=== PATIENT | male | born 1965 | race Caucasian/White ===

== ENCOUNTER 2019-01-31 05:50 | Day surgery (SDC) | payer OTHER ==
[~2019-01-31] VITALS: Ht 175.3 cm; Wt 77.1 kg
[~2019-01-31 05:50] MED LIST: AUGMENTIN 875-1 EACH PO; TRAMADOL HCL50 MG PO
--- NOTE | 2019-01-31 07:59 | NUR ---
01/31/19 0759 Debbie Roman 0754-PATIENT ARRIVED TO PACU ON 10L MASK NONAROUSABLE. ORAL AIRWAY IN PLACE LAYING LEFT LATERAL. ABDOMEN SOFT. RR EVEN. SR
--- NOTE | 2019-02-01 12:42 | OR ---
[facility] [address], [place] [address] Signed DATE OF OPERATION: 01/31/2019 SURGEON: Ria Soto MD PREOPERATIVE DIAGNOSES: 1. Rectal bleeding. 2. Hemorrhoids. 3. Meckel's diverticulitis, requiring resection. 4. Colonic diverticulosis. POSTOPERATIVE DIAGNOSES: 1. Minimal sigmoid diverticulosis. 2. Moderate internal and external hemorrhoids. 3. 5 mm polyp at 15 cm (rectum). PROCEDURE PERFORMED: Colonoscopy with hot biopsy. ESTIMATED BLOOD LOSS: None. INDICATIONS: Praveen is a 53-year-old gentleman who was asked to see me for his initial colonoscopy. He has intermittent rectal bleeding and he feels that is associated with his hemorrhoids. He also has a transverse supraumbilical incision associated with a Meckel's diverticulectomy. In addition, there is some concern that he has colonic diverticulosis. He told me there is no family history of colon cancer or polyps. He was asked to see me with respect to the above. I gave Praveen a pamphlet on colonoscopy. We looked at that together along with the risks including, but not limited to gas bloating, crampy abdominal pain, bleeding, perforation, requiring surgery, and missed diagnosis. We also discussed the need for IV conscious sedation. 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 He had expressed understanding and wished to proceed. PROCEDURE NOTE: Praveen was taken into our endoscopy suite and placed in the left lateral decubitus position. He was given IV sedation with propofol per our nurse colorist photography. Sure enough we could see the Cbvgj-Drdqtpatm-Pwvhy on the rhythm strip. A digital rectal exam was performed and his prostate was somewhat indurated. It is not enlarged, but the Electronically Signed By: RIA SOTO MD 02/01/19 0891 Electronically Signed By: RIA SOTO MD 02/02/19 0747 PATIENT NAME: PRAVEEN NUÑEZ OPERATIVE REPORT DATE OF : 61 REPORT #: [id number] PHYSICIAN: RIA SOTO MD PCP: SRINATH KAUFMAN REPORT IS CONFIDENTIAL AND NOT TO BE RELEASED WITHOUT AUTHORIZATION [facility] [address] [place], [place] [address] Signed left side certainly is more prominent than the right. He does have moderate external hemorrhoids. Good sphincter tone. After this the adult colonoscope was introduced and advanced all around into the cecum under direct visualization of camera without difficulty. His prep was good. The scope was slowly withdrawn. We took pictures throughout for photodocumentation. He does have a few diverticula in his sigmoid colon. They were small in size, few in number, and scattered about. At the top of the rectum at 15 cm was a small polyp, which we easily removed with a hot biopsy forceps. Upon retroflexion of scope, he does have some moderate internal hemorrhoids as well. After this, the gas was suctioned out and the colonoscope removed. Praveen tolerated the procedure quite well. RECOMMENDATIONS: I will see Praveen back in my office in 7 to 14 days to review his results. In addition, I wrote down Meckel's diverticulum and I gave that to Praveen, so he can look that up at home on the Internet. MD AGNES Lara/SCOTTL /[id number] cc: MD Tiffany Lara FNP Wade R Hunsaker, FNP Copies: RIA SOTO MD, MARY FNP HUNSAKER, WADE R FNP ~ Electronically Signed By: RIA SOTO MD 02/01/19 0824 Electronically Signed By: RIA SOTO MD 02/02/19 0747 PATIENT NAME: PRAVEEN NUÑEZ OPERATIVE REPORT DATE OF : 61 REPORT #: [id number] PHYSICIAN: RIA SOTO MD PCP: SRINATH KAUFMAN REPORT IS CONFIDENTIAL AND NOT TO BE RELEASED WITHOUT AUTHORIZATION
== END 2019-01-31 08:25 | disposition home or self-care (01) ==
LOC: OPS 05:50 → DS 05:50 → OPS 07:00 → DS 07:00 → OPS 08:25
PROVIDERS: Colon & Rectal Surgery
PROC: 0DBP8ZX Excision of Rectum, Via Natural or Artificial Opening Endoscopic, Diagnostic (ICD-10-PCS; principal; 2019-01-31 07:00)
DX: K62.1 Rectal polyp (principal); K64.8 Other hemorrhoids; K64.4 Residual hemorrhoidal skin tags; K57.30 Diverticulosis of large intestine without perforation or abscess without bleeding; E78.5 Hyperlipidemia, unspecified; I45.6 Pre-excitation syndrome; F17.210 Nicotine dependence, cigarettes, uncomplicated; I25.2 Old myocardial infarction; I25.10 Atherosclerotic heart disease of native coronary artery without angina pectoris; F12.90 Cannabis use, unspecified, uncomplicated; Z88.5 Allergy status to narcotic agent; Z88.6 Allergy status to analgesic agent; Z88.8 Allergy status to other drugs, medicaments and biological substances
CPT/HCPCS: J2704; J7120

== ENCOUNTER 2023-08-27 13:43 | Inpatient (IN) | payer BC, OTHER ==
[~2023-08-27] VITALS: Ht 175.3 cm; Wt 68.8 kg
[2023-08-27 15:42] LABS: BASOPHILS 0.2 % (0-2); HEMOGLOBIN 16.6 g/dL (12.0-18.0); LYMPHOCYTES 7.1 % (24-44); MCH 32.1 (27-36); MCHC 34.6 g/dl (30-36); MCV 92.8 fl (81-99); NEUTROPHILS 89.7 % (39-80); PLATELET COUNT 280 K/uL (140-440); RBC 5.17 M/ul (4.3-5.7); RDW 13.3 (10.5-15.0)
[2023-08-27 15:57] LABS: ALBUMIN 4.1 g/dL (3.4-5.0); ALBUMIN/GLOBULIN RATIO 1.24 (1.1-2.4); ANION GAP 16.8 (7-21); BILIRUBIN, TOTAL 0.9 ng/dL (0.2-1.0); BUN/CREATININE RATIO 14.7 (6.0-28.6); CREATININE, SERUM 1.02 mg/dL (0.70-1.30); POTASSIUM 3.8 mmol/L (3.5-5.1); PROTEIN, TOTAL 7.4 g/dL (6.4-8.2)
--- NOTE | 2023-08-27 19:53 | NUR ---
[facility] ORIENTED TO ROOM AND POC. ADMISSION COMPLETED BY PEER SUPPORT SPECIALIST KATELYN, THIS RN REMAINED IN ROOM TO ASSIST NEEDED. SEE NOTE FROM PRIMARY RN AUGUST FOR ADDITIONAL DETAILS. CALL LIGHT IN REACH.
[2023-08-27 19:55] VITALS: BP 154/87
--- NOTE | 2023-08-27 19:55 | NUR ---
PATIENT ARRIVED TO GA FROM ER VIA STRETCHER. SBA TO MS BED. QUICK ADMISSION AND VITAL SIGNS DONE. NEW ORDERS ACKNOWLEDGED. PRN PAIN MEDICATION ADMINISTERED, SEE DEC. IV ASSESSED AND FLUSHED WITH 10 MLS OF NS, WNL. IV ABX INFUSING PER ORDER, SEE MAR. SCHEDULED IV MEDICATIONS ADMINISTERED PER ORDER, SEE DEC. REPORTS Pt DESATTED IN THE ER INTO THE 80'S FOLLOWING PAIN MEDICATION. USING CLINICAL JUDGEMENT CPOX WAS PLACED ON pt FINGER TO MONITOR FOR LOW O2 SATURATION DUE TO FREQUENT USE OF IV PAIN MEDICATION. PATIENT STATED HE WAS INTERESTED IN INFORMATION ABOUT ADVANCE DIRECTIVES, PACKET AND EDUCATION PROVIDED TO pt AND FAMILY. CALL LIGHT WITHIN PLACE. NO OTHER NEEDS AT THIS TIME.
--- NOTE | 2023-08-27 21:47 | NUR ---
IV ABX INFUSING, SEE MAR. IV SITE ASSESSED, WNL. CALL LIGHT WITHIN REACH.
--- NOTE | 2023-08-27 22:47 | NUR ---
ASSESSMENT DONE. pt C/O OF 5/10 PAIN IN HIS ABDOMIN. PRN PAIN MEDICATIONS ADMINISTERED, SEE MAR. IV SITE ASSESSED, WNL. SCDs IN PLACE. IVF INFUSING PER ORDER. NG TUBE HOOKED UP TO LOW INTERMITTENT SUCTION PER ORDER. O2 SATURATIONS AT 94% ON RA. CALL LIGHT WITHIN REACH. NO OTHER NEEDS AT THIS TIME.
--- NOTE | 2023-08-27 23:57 | NUR ---
PATIENT RESTING IN BED WITH EYES CLOSED. HR 66. IN ROOM. RESP EVEN AND UNLABORED. CALL LIGHT WITHIN REACH. NO OTHER NEEDS AT THIS TIME.
[2023-08-28] VITALS (9 sets, daily range): BP systolic 101–147; BP diastolic 62–84
--- NOTE | 2023-08-28 02:12 | NUR ---
ASSESSMENT AND VITAL SIGNS DONE. NG SUCTION AT LOW INTERMIDIATE. PATIENT C/O 01/10 PAIN. PRN IV PAIN MEDICATION ADMINISTERED, SEE MAR. IV SITE ASSESSED, WNL. CALL LIGHT WITHIN REACH. NO OTHER NEEDS AT THIS TIME.
--- NOTE | 2023-08-28 03:55 | NUR ---
PATIENT RESTING IN BED WITH EYES CLOSED. RR EVEN AND UNLABORED. CALL LIGHT WITHIN REACH. NO OTHER NEEDS AT THIS TIME.
[2023-08-28 05:27] LABS: BASOPHILS 0.5 % (0-2); EOSINOPHILS 0.2 % (0-6); HEMATOCRIT 47.3 % (35.0-50.0); HEMOGLOBIN 16.1 g/dL (12.0-18.0); LYMPHOCYTES 11.4 % (24-44); MCH 32.1 (27-36); MCHC 34.1 g/dl (30-36); MCV 94.1 fl (81-99); MONOCYTES 5.5 % (0-12); NEUTROPHILS 82.4 % (39-80); PLATELET COUNT 266 K/uL (140-440); RBC 5.03 M/ul (4.3-5.7); RDW 13.6 (10.5-15.0)
--- NOTE | 2023-08-28 05:35 | NUR ---
AT 0500 pt CALLED FOR PAIN MEDICATION. pt C/O OF 7/10 PAIN. VITAL SIGNS DONE. PRN DILAUDID ADMINISTERED, SEE MAR. WHILE ADMINISTERING PAIN MEDICATION pt STATES HE IS NAUSIUOS WELL. PRN ZOFRAN ADMINITERED AT 0515. AT 0530 pt STATED HE IS STILL HAVING BREAK THROUGH PAIN. PRN DILAUDID TITRATED UP, SEE MAR. PATIENT DUE TO VOID. pt STOOD AT BED SIDE WITH URINAL TO PEE. pt WAS ABLE TO VOID 350 MLS. UA SENT. pt BACK IN BED. SCDs ON. PANTS AND UNDERWEAR REMOVED FOR SURGERY. IV ABX INFUSING PER ORDER, SEE MAR. pt RESTING IN BED WITH EYES CLOSED, NO LONGER C/O PAIN. CALL LIGHT WITHIN REACH. NG TUBE REMAINS TO LOW INTERMITTENT SUCTION, LINE PATENT AND OUTPUT BROWN IN CANISTER. IV SITE ASSESSED, WNL. NO OTHER NEEDS AT THIS TIME.
[2023-08-28 05:42] LABS: ANION GAP 13.7 (7-21); BUN/CREATININE RATIO 18.51 (6.0-28.6); CALCIUM 8.4 mg/dL (8.5-10.1); CREATININE, SERUM 0.81 mg/dL (0.70-1.30); MAGNESIUM 1.8 mg/dL (1.8-2.4); PHOSPHORUS, INORGANIC 3.6 mg/dL (2.5-4.9); POTASSIUM 3.7 mmol/L (3.5-5.1)
[2023-08-28 05:51] LABS: BILIRUBIN, URINE POSITIVE (negative); BLOOD/HGB, URINE NEGATIVE (Negative); KETONE, URINE SMALL (Negative); LEUK ESTERASE, URINE NEGATIVE (negative); NITRITE, URINE NEGATIVE (negative); PH, URINE 5.5 (5-7)
--- NOTE | 2023-08-28 05:56 | EKG ---
[facility] [address] [facility] [place], [place] [address] Signed Normal sinus rhythm Left axis deviation Inferior infarct (cited on or before 25-JAN-2019) Abnormal ECG When compared with ECG of 25-JAN-2019 08:43, Left anterior fascicular block is no longer present Confirmed by SERGO ALFORD MD ([id number]) on 08/28/2023 5:56:45 AM Electronically Signed By: SERGO ALFORD 08/28/23 0556 PATIENT NAME: NUÑEZPAOLA Electrocardiogram DATE OF : 61 PHYSICIAN: SERGO ALFORD REPORT #: [id number] REPORT IS CONFIDENTIAL AND NOT TO BE RELEASED WITHOUT AUTHORIZATION
--- NOTE | 2023-08-28 07:18 | CONS ---
[facility] [address] [place], [place] [address] Signed DATE OF CONSULTATION: CHIEF COMPLAINT: Lower quadrant abdominal pain. HISTORY OF PRESENT ILLNESS: Praveen is a 57-year-old gentleman originally from the [place], [place] area. He had perforated diverticulitis with an abscess back in 2002 at age 37. He was at [facility] and used a transverse incision to resect his colon. 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 He has done very well since then. In fact, he works at [employer] for the [employer]. He has moved out here after his grandmother to help his grandfather. His is with him. He has been doing fine until he developed this crampy abdominal pain in the left lower quadrant today. He came to emergency room for evaluation. In the emergency room, his vital signs were fine, but his white count up a little bit. CT scan showed his two fat containing ventral hernias and probably some swirling of the small bowel mesentery and he has some dilated loops of bowel in that left side of his abdomen. I have been asked to see him as a general surgeon on-call. PAST MEDICAL HISTORY: Diverticulitis, Iqwbd-Azifbgnql-Hfnqq syndrome. PAST SURGICAL HISTORY: Open sigmoidectomy through a transverse incision with perforation abscess in 2002 at the age of 37 at [facility] in [place], [place], also cardiac ablation while living in [place], [place], and then an open appendectomy. SOCIAL HISTORY: He likes to smoke a pack cigarettes a day. He does not drink. He likes to smoke a little marijuana before he goes to bed. He is to his , Yanet at #[phone]. They have three children. 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 He is awaiting to see if [facility] will take him as a patient. Otherwise, he has no primary care provider. He prefers the [facility]. FAMILY HISTORY: Mom had breast cancer. He does not know much about his dad. REVIEW OF SYSTEMS: He had 10 systems reviewed and he filled man on some of the details above. ALLERGIES: , midazolam causes agitation. Hydrocodone and oxycodone apparently decreases breathing, possibly anaphylaxis. Ibuprofen only works for one dose. He said morphine and Dilaudid seemed to work. Electronically Signed By: RIA SOTO MD 08/28/23 0718 PATIENT NAME: PRAVEEN NUÑEZ CONSULTATION DATE OF : 61 REPORT #: [id number] PHYSICIAN: RIA SOTO MD PCP: NO PRIMARY CARE PHYSICIAN REPORT IS CONFIDENTIAL AND NOT TO BE RELEASED WITHOUT AUTHORIZATION [facility] [address], [place] [address] Signed MEDICATIONS: None. PHYSICAL EXAMINATION: VITAL SIGNS: His blood pressure is 157/85, his heart rate is 51, his respiratory rate 14, temperature is 98.5. He is 98% on room air. He is 5 feet 9 inches tall, 72 kg with a body mass index of 23. GENERAL: Praveen is a 57-year-old gentleman, who appears older than his stated age. It is clear he has been a long-time smoker. He is in no acute distress. He does not appear systemically ill or toxic. LUNGS: Generally clear to auscultation bilaterally. HEART: Regular rate and rhythm without murmur. ABDOMEN: Generally soft and flat, but he is little tender in the left lower quadrant. I can feel a hernia in his supraumbilical transverse incision. LABORATORY DATA: His white blood count 15.1, his hemoglobin 16, neutrophils 89. His electrolytes are unremarkable. Liver function tests are negative. His albumin is 4.1. RADIOGRAPHIC STUDIES: CT scan of abdomen and pelvis shows two ventral hernias containing fat. He has a little swelling of the small bowel mesentery and it looks like he prior has a small bowel obstruction with some dilated loops of bowel on the left side of the abdomen. ASSESSMENT/PLAN: Praveen is a 57-year-old gentleman, who presents with a small-bowel obstruction. He now has his NG tube in place. I explained to Praveen and his . I think we will get him admitted and I hydrate and we will start his antibiotics and his Lovenox and check an EKG. We will plan on doing his surgery in the morning through a laparotomy. He understands the nature of the surgery. There is risk including, but not limited to bleeding, infection, scarring, change in contour of the skin, damage to bowel, anastomotic leak, incisional hernias and other unforeseen comorbidities. They have expressed understanding and wished to proceed as above. Ria Soto MD ALB/MODL /[id number] Electronically Signed By: RIA SOTO MD 08/28/23 0718 PATIENT NAME: PRAVEEN NUÑEZ CONSULTATION DATE OF : 61 REPORT #: [id number] PHYSICIAN: RIA SOTO MD PCP: NO PRIMARY CARE PHYSICIAN REPORT IS CONFIDENTIAL AND NOT TO BE RELEASED WITHOUT AUTHORIZATION [address] [place], [place] [address] Signed cc: Ria Soto MD Copies: RIA SOTO MD ~ Electronically Signed By: RIA SOTO MD 08/28/23 0718 PATIENT NAME: PRAVEEN NUÑEZ JOHN CONSULTATION DATE OF : 61 REPORT #: [id number] PHYSICIAN: RIA SOTO MD PCP: NO PRIMARY CARE PHYSICIAN REPORT IS CONFIDENTIAL AND NOT TO BE RELEASED WITHOUT AUTHORIZATION
--- NOTE | 2023-08-28 07:50 | NUR ---
PT RESTING IN BED AT TIME OF SHIFT REPORT. C/O CONTINUED ABDOMINAL PAIN MEDICATED WITH [address] ORDERS. [address] SOTO IN TO SEE PT AND DISCUSS PROCEEDURE, CONSENT SIGNED. IS PRESENT IN THE ROOM. PT DENIES OTHER NEEDS AT THIS TIME
--- NOTE | 2023-08-28 08:43 | NUR ---
PT WIPE DOWN COMPLETED ALL QUESTIONS ANSWERED. PT OFF TO O/R
--- NOTE | 2023-08-28 10:37 | NUR ---
PT IN SURGERY AT THE TIME OF VS ROUNDS.
--- NOTE | 2023-08-28 11:24 | NUR ---
PT BACK FROM O/R ALERT AND INTERACTIVE, IS PRESENT IN THE ROOM. PT DENIES PAIN OR NAUSEA, AGREES HE IS COMFORTABLE.
--- NOTE | 2023-08-28 11:36 | NUR ---
08/28/23 1135 Jessica Jaramillo 1037-PATIENT ARRIVES TO [facility] ON 6L VIA MASK. PATIENT IS NONAROUSABLE, OPA IN PLACE. CHIN LIFT BY THIS RN. NG TUBE CONNECTED TO SUCTION. 1045-PATIENT IS REACTIVE. OPA REMOVED. EYES OPEN. PATIENT COUGHING SUCTION USED TO REMOVE SECREATIONS. HOB ELEVATED. ICE PACK ON INCISION. PILLOW NEXT TO PATIENT TO USE WITH COUGHING. 1048-PATIENT IS DROWSY. RESP EVEN AND UNALBORED. O2 SAT AT 100% ON 6L VIA MASK. ENCOURAGED PATIENT TO TAKE DEEP BREATHS AND COUGH. 1055-PATIENT IS AWAKE AND TALKING. RESP EVEN AND UNLABORED. O2 SAT AT 100% ON 6L VIA MASK. 1057-PATIENT STATES "I FEEL GOOD" 1100-PATIENT IS AWAKE. RESP EVEN AND UNLABORED. O2 TITRATED OFF, SATS IN UPPER 90'S ON RA. NO NAUSEA. 1002-PATIENT STATES "I FEEL FINE" ENCOURAGED PATIENT TO TAKE DEEP BREATHS AND COUGH. 1107-PATIENT RATES PAIN 1 1/2 AND THIS IS TOLERABLE FOR HIM. NO NAUSEA. 1120-PATIENT TO ROOM 114. BED PLUGGED IN AND BED RAILS UP. BED LOWERED. PATEINT CONNECTED TO SUCTION FOR NG TUBE. RATES PAIN 1 1/2 OUT OF 10. REPORET GIVEN TO HAMIDA BLAKELY. NO OTHER NEEDS AT THIS TIME.
--- NOTE | 2023-08-28 11:43 | NUR ---
PT CONTINUES AWAKE RESTING COMFORTABLY WATCHING TV, AT BEDSIDE.
--- NOTE | 2023-08-28 12:45 | NUR ---
PT RESTING EYES CLOSED AWAKENS FOR VITALS RETURNS TO RESTING
--- NOTE | 2023-08-28 13:40 | NUR ---
PT AWAKE TO VOICE CONTINUES IN THE ROOM. PT AGREES HE IS COMFORTABLE, STATES HE WANTS THE NG TUBE OUT, IS READY FOR A MEAL, WANTS TO GO HOME. PT IN [employer]ING. DENIES NEEDS AT THIS TIME ICE CHIPS TO BEDSIDE FOR COMFORT. CLEAR LIQUID COMING THROUGH NG TUBE NO COLOR
--- NOTE | 2023-08-28 14:44 | NUR ---
PT CONTINUES TO FEEL "GREAT" NO C/O PAIN OR NAUSEA. SITTING UP IN BED WATCHING TV IS PRESENT
--- NOTE | 2023-08-28 15:27 | NUR ---
Pt up to ambulate the hallway x1 with this RN and pt's . Pt tolerated activity well with no c/o increased pain, no dizziness or lightheadedness. BP while standing was 136/89 prior to ambulating. Pt asked if he had to keep his cpox on, I advised him that I would check with his RN. Call light in reach.
--- NOTE | 2023-08-28 15:34 | NUR ---
PT AMBULATES THE BERMUDEZ SBA THEN RETURNS TO HIS ROOM. DENIES DIZZINESS OR DISCOMFORTS.
--- NOTE | 2023-08-28 20:15 | NUR ---
pt ambulated hallways up and down several times, tolerated well. currently back in room, laying in bed, room air, Lnare NGT in place to Wall suction. draining reddish colored thin drainage, NPO with ice chips for comofrt. coop with vitals and assessment. abd with hypoactive bowel tones, midline incirion with silk tape, old shadowing marked. no c/o pain. scds off at his requets. IVF infusing RFA, patent. Noted that pt was c/o NGT was too noise and disconnected it himself "It does not make as much noise on the blue tube" Pt stated. reconnected tubing to white port, still light air suctioning kind of noise heard. taped to prevent further dislocation or worng placement by pt. Pt instructed on noise, proper positioning for suction/air vent, etc. its just noisey " sttaed, but i dont want to get anybody in trouble". movees and repositions self in bed, uses urinal. at bedside. nurse notified
--- NOTE | 2023-08-28 20:59 | NUR ---
pt c/o h/a and excessive noise coming fron ngt. main tubing to NGT changed and stop cok applied. "better" stated, diminished air flow noise noted. Medicated with Tylenol via NGT. flushes easily, clamped at this time.
--- NOTE | 2023-08-29 00:39 | NUR ---
On room air, eyes closed, L nare NGT to LIWS, patent, draining reddish colored drainage. IVF infusing w/o problems. abd dressing with old drainage, scds off at his requests at this time.
--- NOTE | 2023-08-29 01:46 | NUR ---
PATIENT AND STATED THAT PT PASSES FLATUS.
[2023-08-29 01:48] VITALS: BP 134/70
--- NOTE | 2023-08-29 01:55 | NUR ---
continues to c/o h/a, medicated with DIlaudid 1mg IV. irritable mood, NGT nose pad replaced. Procedure explained, semicooperative. denies need to stand up and urinate. NPO, tolerating ice chips. IVF infusing. scds off his request.
[2023-08-29 06:01] VITALS: BP 129/83
--- NOTE | 2023-08-29 06:27 | NUR ---
Up to edge of bed, voided QS light ave colored urine. c/o h/a, declined Tylenol, medicated with Dilaudi 1mg. NGT patent to RODOLFO, draining reddish colored drainage. IVF infusing , no c/o adverse reaction to abx. midline incision dressing with old drainage, KIRK, pt stated he is passing flatus. scds off. Ambulated hallways earlier on shift. NPO, IS instructions given and used. Temp 99
--- NOTE | 2023-08-29 06:28 | OR ---
[facility] [address] [place], [place] [address] Signed DATE OF OPERATION: 08/28/2023 SURGEON: Ria Soto MD PREOPERATIVE DIAGNOSES: 1. Small bowel obstruction x2. 2. Supraumbilical ventral incisional hernia (3 cm). POSTOPERATIVE DIAGNOSES: 1. Small bowel obstruction x2. 2. Supraumbilical ventral incisional hernia (3 cm). 3. History of Meckel's diverticulectomy. PROCEDURES: 1. Laparotomy. 2. Moderate lysis of adhesions. 3. Primary repair of ventral hernia (3 cm). ESTIMATED BLOOD LOSS: Less than 10 mL. INDICATIONS: Praveen is a 57-year-old gentleman originally from [place], [place]. He had a family member so he came out to support the rest of his family here in [place], [place]. He now works at the local [employer] in the [employer] department. He came into the emergency room with left lower quadrant abdominal pain. It was crampy and came on in waves. He was tender in that area. Vital signs were fine. White count was up a little. CT scan of abdomen and pelvis showed two ventral hernias containing fat and some swirling in the small bowel mesentery and small bowel obstruction, probably x2. I met with Praveen and his in the emergency room. We placed an NG tube and admitted him overnight for hydration and antibiotics. This morning, he said he was still using some Dilaudid for the pain. When I went back and checked my records, I helped him with a colonoscopy in 2019. He has actually had a Meckel's diverticulectomy. For some reason, he said there was an abscess associated with that. That would explain some of the adhesions. I explained to Praveen that we have to take him to surgery to lyse the adhesions and relieve him of his bowel obstruction. There is always a risk, we have to do a small bowel resection as well. He understands the expected intraop and postop course. There is risk including, but not limited to bleeding, infection, scarring, change in contour of the skin, damage to bowel, anastomotic leak, recurrent incisional hernias and recurrent adhesions with bowel obstruction and any other unforeseen Electronically Signed By: RIA SOTO MD 08/29/23 0628 PATIENT NAME: PRAVEEN NUÑEZ OPERATIVE REPORT DATE OF : 61 REPORT #: [id number] PHYSICIAN: RIA SOTO MD PCP: NO PRIMARY CARE PHYSICIAN REPORT IS CONFIDENTIAL AND NOT TO BE RELEASED WITHOUT AUTHORIZATION [facility] [address] [place], [place] [address] Signed comorbidities. He had expressed understanding and wished to proceed. DESCRIPTION OF PROCEDURE: Praveen was taken into the operating room and placed in the supine position under general endotracheal tube anesthesia. He was given preoperative antibiotics. He was on subcutaneous Lovenox. SCDs were in place. Sotelo catheter was inserted with return of ave colored clear urine. He had been prepped and draped in the usual sterile fashion. A standard periumbilical vertical incision was made and carried to the abdomen without difficulty with the help of the cautery. He had a 3 cm ventral hernia just off to the edge of the midline above the umbilicus from his previous transverse incision. We reduced all the omentum from that hernia and back in the abdomen. We did take down some adhesions between the omentum in the falciform ligament as well as the transverse colon and small bowel. He had dilated hyperemic bowel in that left quadrant. We took down the adhesive bands and bowel began to pink up very nicely. The distal bowel was completely decompressed. We took down we ran the bowel from the ligament of Treitz all the way down the ileocecal valve. We found the area of his Meckel's diverticulectomy. It looks like they suture in transversely. We took down all adhesions as well as a few adhesions from the small bowel down to the sigmoid colon. The abdomen was irrigated and suctioned out until clear. The bowel was returned to its position and covered over by the omentum. We closed the fascia with interrupted #1 PDS [id number] sutures. We injected local anesthetic into the abdominal wall. The wound was irrigated and suctioned out until clear. We brought the dermis back together with interrupted 3-0 subcuticular Monocryl sutures. The skin edges were reapproximated with regina. Our anesthesia provider provided bilateral TAP blocks. After this, Praveen was awakened from his anesthesia, extubated in the OR and taken to the recovery room in stable condition. Ria Soto MD ALB/MODL /[id number] cc: Ria Soto MD Electronically Signed By: RIA SOTO MD 08/29/23 0628 PATIENT NAME: PRAVEEN NUÑEZ OPERATIVE REPORT DATE OF : 61 REPORT #: [id number] PHYSICIAN: RIA SOTO MD PCP: NO PRIMARY CARE PHYSICIAN REPORT IS CONFIDENTIAL AND NOT TO BE RELEASED WITHOUT AUTHORIZATION [address] [place], [place] [address] Signed Copies: RIA SOTO MD ~ Electronically Signed By: RIA SOTO MD 08/29/23 0628 PATIENT NAME: PRAVEEN NUÑEZ OPERATIVE REPORT DATE OF : 61 REPORT #: [id number] PHYSICIAN: RIA SOTO MD PCP: NO PRIMARY CARE PHYSICIAN REPORT IS CONFIDENTIAL AND NOT TO BE RELEASED WITHOUT AUTHORIZATION
--- NOTE | 2023-08-29 06:58 | NUR ---
Dr Hamilton in room, abd dressing removed, regina in place, edges well approx, dry, pt passing gas, NPO, NGT inplace
--- NOTE | 2023-08-29 07:16 | NUR ---
Pt report received from ZORA Pringle. Pt is supine in bed, lights off, but awake. Denies pain at this time. at bedside. Denies needs. Call ligth in reach. NGT on LIWS.
[2023-08-29 09:43] VITALS: BP 115/70
--- NOTE | 2023-08-29 10:36 | NUR ---
PT'S CAME TO THE NURSE'S STATION TO ADVISE THAT THE NG TUBE WAS MAKING A WHISTLING SOUND FROM ONE OF THE "CAPS". ASSESSED TUBE, DID NOT HEAR ANY NOISES FROM THE END THE PT WAS REFERRING TO (VALVE) AND REQUESTED SHE CALL AGAIN IF SHE HEARS IT AGAIN. THE PT CURRENTLY REPORTS HIS PAIN IS A "SOLID 7" OUT OF 10. 2 ICE PACKS WERE PROVIDED AND APPLIED TO THE PT'S ABDOMEN. BOWEL TONES ARE HYPOACTIVE. PT HAS NOT PASSED ANY GAS THIS MORNING. HE WAS GIVEN 0.5MG OF DILAUDID AT 0845 AND AGAIN AT 0905 AND HAS RATED HIS PAIN 6 OR 7 OUT OF 10 SINCE 0845, BUT HAS BEEN RESTING QUIETLY IN BED, AND HAS SLEPT OFF AND ON. PT STATES HE THINKS HE'S BEEN HURTING FROM COUGHING ALL NIGHT LONG. DYLLAN, RN, REPORTED THAT SHE ADMINISTERED 1MG DILAUDID IV, FOR PAIN, THREE TIMES DURING HER SHIFT. REINFORCED IMPORTANCE OF AMBULATING QID, AND ADVISED PT THAT HE IS WELCOME TO SHOWER IF HE'D LIKE AND TO USE THE CALL LIGHT TO LET ME KNOW. PT'S IS IN THE ROOM. CALL LIGHT IN REACH.
--- NOTE | 2023-08-29 11:15 | NUR ---
Spoke with pt and his . They live in a 3rd story apartment with stairs only. Pt was able to walk the stairs to come to the hospital with difficulty. 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 He is very active, drives, and does all his own self care. He does not usea any DME. Per , she is disabled and he is her cg. Pt does smoke cigaretts and does not want to quit. Pt does plan on dc to home when he meets criteria. He has an NG in place at this time. Pt does not have pcp and I sent the request the the physician clinic as they have been trying to see Lissette Hodges, but not completed the paper work. I faxed his chart requesting a fu visit and pcp. I gave the the [facility] transport number as she does not drive and pt may need transport to medical appointments. also states [employer] will help then winterize their home this week.
--- NOTE | 2023-08-29 11:24 | NUR ---
Pt is resting in bed, supine, with lights down, eyes closed, but opens them as soon as the curtain is pulled back. When asked if he would care to have more pain meds at this time, the pt states that "I think I'm okay for right now" and has two ice packs applied to his abdomen. Call light in reach. Denies needs at this time.
--- NOTE | 2023-08-29 13:09 | NUR ---
IN FOR PAIN ASSESSMENT AFTER MEDICATION ADMINISTRATION AND TO RESPOND TO CALL LIGHT. PT REPORTS HIS CURRENT PAIN IS AT A 1 OR 2 OUT OF 10. HE STATES THAT HIS NOSE IS ITCHING AND THE TAPE IS TRYING TO COME OFF THAT HOLDS THE NGT IN PLACE. TAPE WAS REMOVED, PT'S NOSE CLEANED WITH ALCOHOL SWABS, ALLOWED TO AIR DRY, AND A NEW SECUREMENT DEVICE APPLIED AND CONNECTED THE THE NGT. PT IMMEDIATELY STATES THAT THIS FEELS MUCH BETTER. CALL LIGHT IN REACH. DENIES FURTHER NEEDS AT THIS TIME.
[2023-08-29 13:17] VITALS: BP 139/80
--- NOTE | 2023-08-29 13:50 | NUR ---
MS ROUNDS. PT APPEARED TO BE ATTEMPTING TO REST WITH DOOR CLOSED CURTAIN PULLED TIGHT AND LIGHTS OFF. DID NOT INTRUDE. PROVIDED PRAYER.
--- NOTE | 2023-08-29 16:26 | NUR ---
While administering 1mg IV dilaudid around 1550 hours, I noticed that I had neglected to take the IV pump off of standby mode after I administered the previous dose of IV dilaudid approximately 3+ hours prior. IV was patent, no swelling, no leaking, no pain, good return. Flushed before pain med administration and after, then IV pump started per EMAR/Orders again. Charge nurse notified at this time.
--- NOTE | 2023-08-29 16:43 | NUR ---
PT HAS BEEN IN BED FOR THE MAJORITY OF THIS SHIFT. HE HAS AMBULATED THE HALLWAY X1 AND IS NOT EASY TO MOTIVATE. PT HAS VOIDED 1X THIS SHIFT FOR 525ML OF DARK URINE. HE REPORTS HE HAS PASSED GAS ABOUT FOUR TIMES TOTAL TODAY. BT WERE HYPOACTIVE THIS MORNING AND AFTERNOON, AND THIS EVENING HAVE BEEN DIFFICULT TO DETECT. PT HAS BEEN ENCOURAGED, OFTEN, THROUGHOUT THIS SHIFT TO SUCK ON ICE CHIPS AND HARD CANDY, TO AMBULATE, AND TO TRY TO HELP US HELP HIM FIND DIFFERENT WAYS TO CONTROL HIS PAIN. HE SEEMS TO HAVE INCREASED PAIN D/T COUGHING. REINFORCED EDUCATION ON USING A PILLOW TO GUARD WHILE COUGHING, USING INCENTIVE SPIROMETER, AND AMBULATING. PT HAS NOT BEEN COOPERATIVE UNTIL THIS EVENING WHEN THE CHARGE NURSE COMMUNICATED TO HIM THE ISSUES SURROUNDING NOT FOLLOWING ORDERS TO HELP PREVENT AN ILEUS. SINCE THE CHARGE NURSE SPOKE WITH HIM, HE WALKED THE HALLWAY, AND STATED HE WOULD TRY TO CUT BACK ON THE PAIN MEDS (HE HAS HAD A TOTAL OF 3MG OF IV DILAUDID THIS SHIFT). HE HAS USED THE ICE PACKS, AND HAS BEEN SLEEPING FOR MOST OF THE DAY. PC TO DR. SOTO TO ADVISE HIM OF THE UPDATE AT 1730 HOURS.
--- NOTE | 2023-08-29 17:30 | NUR ---
PC TO DR. SOTO TO UPDATE HIM ON PT'S CONDITION. ADVISED HIM OF THE ABSENT/HYPOACTIVE BOWEL TONES AND THE PT'S UNWILLINGNESS THROUGHOUT THIS SHIFT TO HEED NURSING INSTRUCTIONS TO AMBULATE AND DECREASE PAIN MEDICATION. DR. SOTO NOTED THE UPDATE. NO ORDERS OR CHANGES TO ORDERS OBTAINED AT THIS TIME. ADVISED HIM WE WILL CONTINUE TO MONITOR AND ENCOURAGE PT TO FOLLOW ORDERS TO FACILITATE HEALING.
[2023-08-29 18:11] VITALS: BP 140/81
--- NOTE | 2023-08-29 18:15 | NUR ---
PATIENT IN BED WATCHING TV, VISITOR IN ROOM. VITALS AND I&O'S CHARTED. CALL LIGHT IN REACH. NO FURTHER NEEDS AT THIS TIME.
--- NOTE | 2023-08-29 19:39 | NUR ---
IV ALARMING, NEW BAG NOW INFUSING. PT IN BED, NG WITH BROWNISH REDBRICK COLOR. PT AND WITH NO NEEDS AT THIS TIME.
--- NOTE | 2023-08-29 19:39 | NUR ---
RECEIVED REPORT FROM DAY SHIFT RN. PATIENT IS UP AMBULATING IN THE [place]. PATIENT DENIES ANY PAIN OR NAUSEA. PATIENT DENIES ANY NEEDS. AMBULATING WITH PAITENT.
[2023-08-29 21:03] VITALS: BP 152/82
--- NOTE | 2023-08-29 21:44 | NUR ---
PATIENT ASSESMENT COMPLETED. PATIENT HAS HYPOACTIVE BOWEL SOUNDS IN ALL QUADRANTS. PATIENT HAS NG TUBE PRESENT ON LWIS. NG TUBE DRAINGE NOTED TO BE LIGHT BROWN IN COLOR WITH SEDIMENT NOTED. NG IS TO LWIS. PATIENT DENIES ANY NAUSEA. PATIENT HAS MID ABD INCISION THAT IS OPEN TO AIR, BANDAR PRESENT, WELL APPROXIMATED AND NO SIGNS OF INFECTION NOTED. PATIENTS IV INFUSING PER ORDER. PATIENT RATES PAIN AT A 7/10, PRN PAIN MEDICATION GIVEN PER ORDER. PATIENT PROVIDED ICE PACK AND APPLIED TO LEFT SIDE OF ABD. PATIENT DENIES ANY FURTHER NEEDS. CALL LIGHT AND BELONGINGS ARE WITHIN REACH. PRESENT AT BEDSIDE.
--- NOTE | 2023-08-29 22:33 | NUR ---
PATIENT IS RESTING IN BED WITH EYES CLSOED, RR 14. CALL LIGHT IN REACH. IV INFSUING. NG TO LWIS. PATIENTS ON COUCH.
--- NOTE | 2023-08-30 00:28 | NUR ---
PATIENT IS RESTING IN BED WITH EYES CLOSED, RR 15. NG TO LWIS. IV INFUSING PER ORDER. PATIENTS ASLEEP ON COUCH. CALL LIGHT IN REACH.
--- NOTE | 2023-08-30 01:49 | NUR ---
CALL LIGHT ANSWERED. PATIENT REPORTS 7/10 PAIN IN THE ABD. PRN PAIN MEDICATION ADMINSITERED. NEW ICE PACK PROVIDED. CALL LIGHT IN REACH. NO FURTHER NEEDS.
--- NOTE | 2023-08-30 04:15 | NUR ---
PATIENT IN BED RESTING IN BACK. RESPIRATIONS EVEN AND UNLABORED. CALL LIGHT IN REACH.
[2023-08-30 05:39] VITALS: BP 155/82
--- NOTE | 2023-08-30 06:01 | NUR ---
CALL LIGHT ANSWERED. PATIENT STATES IV BEEPING. NEW BAG IV FLUID INFUSING PER ORDER. VS AND I&Os OBTAINED AND RECORDED. ASSESSMENT COMPLETE. BOWEL TONES ACTIVE IN ALL 4 QUADRANTS. PATIENT STAES NO NAUSEA AND PAIN IS A LITTLE BETTER. PATIENT HAS NO FURTHER NEEDS. CALL LIGHT IN REACH.
--- NOTE | 2023-08-30 07:40 | NUR ---
RECEIVED REPORT FROM ZORA SPENCER AND ZORA DAHL. PT LYING IN BED, IN ROOM. PT STATES PAIN IS 2/10 AND STATES IS "TOLERABLE". PT STATES NO NEEDS AT THIS TIME, CALL LIGHT WITHIN REACH, BED RAILS UP. ASSUMING CARE OF PT WITH ZORA MCKEON.
--- NOTE | 2023-08-30 07:41 | NUR ---
REPORT RECEIVED FROM ZORA VERGARA. PT RESTING IN BED WITH HEAD OF BED AT [address]UBE IN PL[address] SOTO AT BEDSIDE, UPDATED ON PT STATUS. PT REPORTS 2-3/10 PAIN AT THIS TIME AND DENIES NEED FOR PAIN MEDICAITON. PT DENIES NAUSEA. NO ADDITIONAL REQUESTS OR COMPLAINTS. CALL LIGHT WITHIN REACH. BED RAILS UP. PTS AT BEDSIDE.
--- NOTE | 2023-08-30 08:21 | NUR ---
MORNING ASSESSMENT AND MEDCATION DUE. PT RESTING IN BED WITH EYES CLOSED. RESPIRATIONS EVEN AND UNLABORED. PT AWAKENS TO MOVEMENT IN THE ROOM. PT REPORTS ABDOMINAL PAIN REMAINS AT 2/10 AND DECLINES PAIN MEDICAITONS AT THIS TIME. PT UPDATED ON PLAN OF CARE AND PLAN TO REMOVE NG TUBE. NG TUBE DC'D PER [employer]. PT TOLERATED WELL. PT VERBALIZES UNDERSTANDING OF WHEN TO NOTIFIY NURSING STAFF FOR ANY INCREASED NAUSEA. PT ALERT AND OREITNED TO ALL. LUNG SOUNDS CLEAR. HEART TONES REGULAR. BOWEL TONES REMAINS HYPOACTIVE. PT REPORTS CAFFEEN AND NICOTEEN HELP HIS BOWELS MOVE. ROXIE STALLWORTH OFFERED, DECLINED. ABDOMINAL DISTENTION IMPROVING, NOW MILD. MID LINE INCISION C/D/I WITH EDGES WELL APROXIMATED AND NO DRAINAGE PRESENET. MILD ERYTHEMA PRESENT FOR ~0.5CM EDGES OF INCISION. PT BURPING FREQUENTLY. PT ENCORUAGED TO AMBULATE, AGREES AND GETS UP TO AMBULATE WITH IN [place], STEADY ON FEET, NO ASSISTANCE NEEDED. NO ADDITIONAL REQUESTS OR COMPLAINTS. CALL LIGHT WITHIN REACH. BED RAILS UP.
--- NOTE | 2023-08-30 08:52 | NUR ---
SET PATIENT UP FOR A SHOWER SOMETIME TODAY. IN ROOM. PATIENT SITTING UP IN THE CHAIR. ALSO SET HIM UP TO DO HIS ORAL CARE. LINENS CHANGED.
[2023-08-30 09:03] VITALS: BP 153/80
--- NOTE | 2023-08-30 09:42 | NUR ---
THIS RN TO ROOM TO CHECK ON PT. PT RESTING IN BED WITH EYES CLOSED. RESPIRATIONS EVEN AND UNLABORED. PTS AT BEDSIDE, REPORTS THEY HAVE NO NEEDS AT THIS TIME. CALL LIGHT WITHIN REACH. BED RAILS UP.
--- NOTE | 2023-08-30 10:48 | NUR ---
HOURLY ROUNDING: PT RESTING IN BED, TALKING ON THE PHONE. PT DOES NOT WANT PHONE CONVERSTAION INTURRUPTED. PTS STATES PT HAS NO NEEDS A THIS TIME AND IS "GETTING READY FOR ANOTHER WALK." CALL LIGHT WITHIN REACH. BED RAILS UP.
--- NOTE | 2023-08-30 11:30 | NUR ---
THIS RN TO ROOM TO CHECK ON PT. PT RESTING IN BED, HEAD OF BED AT 30 DEGREES. PT REPORTS 5/10 PAIN AND REQUESTS PAIN MEDICATION. PO MEDICATION GIVEN WITH A SMALL SIP OF WATER. PT DENIES NAUSEA. NO ADDITONAL REQUESTS OR COMPLAINTS. CALL LIGHT WITHIN REACH. PTS AT BEDSIDE. BED RAILS UP.
--- NOTE | 2023-08-30 12:24 | NUR ---
PT PRESSES CALL LIGHT, THIS RN TO ROOM. PT STATES "I FEEL LIKE I HAVE A LOT OF GAS, BUT CAN'T GET RID OF IT". PT STATES PAIN IS 8/10. UPON ASSESSMENT, BOWEL TONES ARE ACTIVE, ABDOMEN IS UNCHANGED FROM MORNING ASSESSMENT. INCISION SITE CONTINUES TO BE C/D/I AND WNL. EDGES OF INCISION ARE WELL APPROXIMATED, NO REDNESS/HEAT/SWELLING. PT UP FOR WALK WITH HIS , BRANDIE. AFTER WALK, PT STATES PAIN IS 9/10, REQUESTS PAIN MEDICINE, GIVEN (SEE EMAR). PT REPORTS THAT HE WOULD LIKE TO "TAKE A REST" AT THIS TIME AND STATES "I WILL GET UP AND WALK MORE AFTER". PT STATES NO FURTHER NEEDS AT THIS TIME, CALL LIGHT WITHIN REACH, BED RAILS UP.
[2023-08-30 13:07] VITALS: BP 137/72
--- NOTE | 2023-08-30 14:13 | NUR ---
AFTERNOON ASSESSMENT. PT STATES PAIN IS "0.5/10" AT THIS TIME, STATES HE DOES NOT FEEL "BLOATED" EARLIER AND DENIES NEED FOR PAIN MEDICATION AT THIS TIME. IVF INFUSING PER ORDER, IV SITE PATENT, WNL. SCDs NOT CURRENTLY ON D/T PT UP FOR WALKING TODAY. ABDOMEN CONTINUES TO BE MILDLY DISTENDED, SOFT, NON-TENDER. ACTIVE BOWEL TONES IN ALL QUANDRANTS. PT DENIES ANY NAUSEA AT THIS TIME. NO BM SINCE PRIOR TO SURGERY, PT STATES HE HAS NOT YET HAD FLATULENCE. PT CONTINUES TO BE NPO BUT FOR ICE CHIPS AND HARD CANDY PER ORDER, TOLERATING NG TUBE REMOVAL WELL SO FAR THIS SHIFT. INCISION ASSESSED, WNL. EDGES WELL APPROXIMATED, NO REDNESS/SWELLING/HEAT. PT STATES NO QUESTION, CONCERNS, OR NEEDS AT THIS TIME. CALL LIGHT WITHIN REACH, BED RAILS UP, AT THE BEDSIDE.
--- NOTE | 2023-08-30 14:15 | NUR ---
Pt speaking with nurse. Spoke with . She denies needs. Pt NG is out. NO plan for dc today.
--- NOTE | 2023-08-30 14:48 | NUR ---
HOURLY ROUNDS: PT UP TO AMBULATE IN [place], INDEPENDANT AND STEADY ON FEET. PTS ACCOMPANYING HIM. PT REPORTS 1/10 PAIN THAT IS WELL CONTROLLED. PT DENIES NAUSEA. NO ADDITIONAL NEEDS OR REQUESTS AT THIS TIME.
--- NOTE | 2023-08-30 15:00 | NUR ---
CAME OUT AND ASKED FOR A CUP OF ICE. AND HE WALKED ONE AND HALF LAPS WITH .
--- NOTE | 2023-08-30 15:56 | NUR ---
THIS RN TO ROOM TO CHECK ON PT. PT REPORTS PAIN IS SLOWLY INCREASING, NOW 2/10. SEE MAR FOR MEDICATION GIVEN. PT REPORTS HE CONTINUES TO FEEL BLOATED, EDUCATION DONE WITH PT. PT DENIES PASSING ANY GAS. PT DENIES NASUEA. NO ADDITIONAL REQUESTS OR COMPLAINTS. CALL LIGHT WITHIN REACH. BED RAILS UP.
--- NOTE | 2023-08-30 16:56 | NUR ---
THIS RN TO CHECK ON PT. PT REPORTS HE WAS UP TO AMBULATE X1 LAP IN [place]. PT REPORTS 3/10 PAIN WITH THE ORAL PAIN MEDICATION "BARILY TOUCHING IT." PAIN MEDICATION TITRATED UP TO FULL DOSE. PT CONTINUES TO DENY NAUSEA. PT REPORTS HE FEELS THAT HE IS "CLOSE TO PASSING GAS BUT NOT YET." PT DENIES ADDITIONAL REQUESTS OR COMPLAINTS. CALL LIGHT WITHIN REACH. BED RAILS UP.
[2023-08-30 17:08] VITALS: BP 150/86
--- NOTE | 2023-08-30 17:54 | NUR ---
HOURLY ROUNDING: PT RESTING IN BED, "TRYING TO SLEEP." PT REQUESTS SLEEPING MEDICATIONS NOW. PT ADVISED THAT THESE ARE BEST TAKEN CLOSER TO TIME FOR BED. PT AGREES. PT REPORTS PAIN IS WELL CONTROLLED AT 2/10 AND DENIES NEED FOR ADDITIONAL PAIN MEDICATION. PT DENIES NAUSEA. PT CONTINUES TO STATE HE HAS NOT YET PASSED GAS. 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 PT AGREES TO USE CALL LIGHT IF ANY NEEDS SHOULD ARISE BEFORE HIS NIGHT NURSE COMES IN WITH MEDICATIONS. PTS REMAINS AT BEDSIDE. NO ADDITIONAL REQUESTS OR COMPLAINTS. CALL LIGHT WITHIN REACH. BED RAILS UP.
--- NOTE | 2023-08-30 18:13 | NUR ---
PT POST OP DAY 2 FROM EXPLORATORY LAPAROTOMY W/LYSIS OF ADHESIONS. NG TUBE REMOVED TODAY PER ORDER, PT REMAINS NPO BUT FOR ICE CHIPS AND HARD CANDY PER ORDER. PT DENIES NAUSEA THROUGHOUT SHIFT. NO FLATULENCE OR BM TODAY. PT RATES PAIN 0.5-6/10 THROUGHOUT SHIFT, PRN PAIN MEDICATION GIVEN (SEE EMAR). PT TRANSITIONING TO PO PAIN MEDICATION. PT INDEPENDENT FOR MULTIPLE WALKS TODAY WITH . I.S. AT THE BEDSIDE, EDUCATION PROVIDED ON USE. ABDOMEN MILDLY DISTENDED TODAY SOFT, NON-TENDER TO PALPATION. SURGICAL INCISION REMAINS WNL, NO REDNESS/SWELLING/HEAT TO THE AREA, BANDAR IN PLACE AND INCISION MEASURES (SEE WOUND ASSESSMENT), EDGES WELL APPROXIMATED. PT VOIDING QUANTITY SUFFICIENT. DECLINES SHOWER TODAY. AT THE BEDSIDE THROUGH SHIFT. PT USES CALL LIGHT APPROPRIATELY.
--- NOTE | 2023-08-30 18:22 | NUR ---
IN TO DO VITALS AT 1700. SHOWER WAS SET UP THIS MORNING, PATIENT NOW STATES "I WOULD RATHER TAKE A SHOWER AT HOME WHEN I AM DISCHARGED RATHER HERE." IF HE CHANGES HIS MIND WE WILL DO HIS SHOWER TOMORROW.
[2023-08-30 20:32] VITALS: BP 149/87
--- NOTE | 2023-08-30 20:57 | NUR ---
PT WITH EYES CLOSED. AWAKENS EASILY. VS AND I&O OBTAINED. EVENING ASSESSMENT COMPLETE. SCHEDULED MEDS ADMIN PER EMAR. PRN ADMIN FOR 2/10 ABD PAIN. PT DENIES NAUSEA. MIDLINE ABD INCISION WELL APPROXIMATED WITH BANDAR INTACT. NO DRAINAGE NOTED. ABD SOFT. BOWEL TONES ACTIVE. PT DENIES FLATUS. ICE PACK FOR INCISION AND FRESH ICE CHIPS PROVIDED. IVF INFUSING WNL. TO STAY THE NIGHT. PRN ADMIN FOR SLEEP WITH SIPS OF WATER. PT DENIES QUESTIONS OR CONCERNS. CALL LIGHT IN REACH.
--- NOTE | 2023-08-30 23:36 | NUR ---
PT RESTING IN BED WITH EYES CLOSED. RESPIRATIONS EVEN. NEW BAG IVF INFUSING PER ORDER. CALL LIGHT IN REACH.
--- NOTE | 2023-08-31 02:27 | NUR ---
PT RESTING IN BED WITH EYES CLOSED. RESPIRATIONS EVEN. CALL LIGHT IN REACH.
--- NOTE | 2023-08-31 02:57 | NUR ---
CALL LIGHT ANSWERED. PT REPORTS FLATUS. ABD ASSESSMENT UNCHANGED. PT REPORTS PAIN IS TOLERABLE AT THIS TIME. REFUSED PRN FOR PAIN WHEN OFFERED. REQUESTED AND RECEIVED PRN FOR SLEEP. URINAL EMPTIED. NO FURTHER NEEDS. CALL LIGHT REACH.
[2023-08-31 05:24] VITALS: BP 150/76
[2023-08-31 05:27] LABS: BASOPHILS 0.4 % (0-2); EOSINOPHILS 2.5 % (0-6); HEMATOCRIT 41.6 % (35.0-50.0); HEMOGLOBIN 14.1 g/dL (12.0-18.0); LYMPHOCYTES 16.6 % (24-44); MCH 31.5 (27-36); MCHC 33.8 g/dl (30-36); MCV 93.2 fl (81-99); MONOCYTES 7.9 % (0-12); NEUTROPHILS 72.6 % (39-80); PLATELET COUNT 215 K/uL (140-440); RBC 4.46 M/ul (4.3-5.7); RDW 13.7 (10.5-15.0)
--- NOTE | 2023-08-31 05:27 | NUR ---
LAB IN ROOM FOR MORNING DRAW. VS AND I&O OBTAINED. PRN FOR 5/10 ABD PAIN ADMIN WITH SIP OF WATER. PT REPORTS FLATUS. DENIES NAUSEA. NO FURTHER NEEDS.
[2023-08-31 05:39] LABS: ANION GAP 8.5 (7-21); BUN/CREATININE RATIO 11.42 (6.0-28.6); CALCIUM 8.4 mg/dL (8.5-10.1); CREATININE, SERUM 0.7 mg/dL (0.70-1.30); MAGNESIUM 1.7 mg/dL (1.8-2.4); PHOSPHORUS, INORGANIC 3.7 mg/dL (2.5-4.9); POTASSIUM 3.5 mmol/L (3.5-5.1)
--- NOTE | 2023-08-31 08:34 | NUR ---
MORNING ASSESSMENT AND MEDICATIONS DUE, GIVEN (SEE EMAR). PT RESTING WITH EYES CLOSED, AT THE BEDSIDE. PT AWAKENS TO VOICE. URINAL ON COUNTER CONTAINS CLEAR YELLOW URINE, EMPTIED. PT VOIDING QUANTITY SUFFICIENT. PT STATES PAIN IS 1/10 CURRENTLY, DENIES NEED FOR PAIN MEDICATION. LUNG SOUNDS REMAIN CLEAR, ENCOURAGED USE OF I.S. DEVICE. NO EDEMA PRESENT, PT STATES SENSATION PRESENT IN ALL EXTREMETIES. ABDOMEN REMAINS MILDLY DISTENDED, PT STATES "IS A LITTLE BLOATED FEELING", MILDLY TENDER TO PALPATION. ACTIVE BOWEL TONES IN ALL QUANDRANTS. PT DENIES ANY NAUSEA AT THIS TIME, HAS HAD FLATULENCE, NO BM SINCE SURGERY YET. SURGICAL INCISION WNL, EDGES WELL APPROXIMATED, BANDAR INTACT, NO REDNESS/SWELLING/HEAT IN THE AREA, NO DRAINAGE PRESENT. PT STATES NO CONCERNS OR NEEDS AT THIS TIME, STATES "I THINK I'LL GO ON A WALK HERE SOON". CALL LIGHT WITHIN REACH, AT THE BEDSIDE, BED RAILS UP.
--- NOTE | 2023-08-31 08:57 | NUR ---
PATIENT IS SLEEPING.
[2023-08-31 09:15] VITALS: BP 143/82
--- NOTE | 2023-08-31 10:05 | NUR ---
HOURLY ROUNDING. PT STATES PAIN IS 2/10, DENIES NEED FOR PAIN MEDICATION AT THIS TIME. PT UP TO RESTROOM AND GOING FOR WALK AROUND UNIT INDEPENDENTLY WITH . PT STATES NO FURTHER NEEDS AT THIS TIME.
--- NOTE | 2023-08-31 10:53 | NUR ---
HOURLY ROUNDING. PT IN RESTROOM. PT STATES PAIN IS 4/10 AT THIS TIME, REQUESTS PAIN MEDICATION, GIVEN (SEE EMAR). PT STATES NO FURTHER NEEDS AT THIS TIME, CALL LIGHT WITHIN REACH.
--- NOTE | 2023-08-31 11:30 | NUR ---
Pt sleeping, out of room. Per Dr. Hernandez pt not near dc at this time.
--- NOTE | 2023-08-31 11:59 | NUR ---
HOURLY ROUNDING. PT STATES PAIN IS 3/10, DENIES NEED FOR PAIN MEDICATION AT THIS TIME. PT STATES NO FURTHER NEEDS CURRENTLY, CALL LIGHT WITHIN REACH, BED RAILS UP.
--- NOTE | 2023-08-31 13:04 | NUR ---
HOURLY ROUNDING. PT STATES PAIN IS 1/10. PT STATES HE WOULD LIKE TO START TAKING TYLENOL INSTEAD OF DILAUDED TO "SEE IF IT WILL KEEP THE PAIN DOWN". PT DENIES NEED FOR PAIN MEDICATION AT THIS TIME. PT STATES NO FURTHER NEEDS CURRENTLY, CALL LIGHT WITHIN REACH, BED RAILS UP.
[2023-08-31 13:14] VITALS: BP 155/86
--- NOTE | 2023-08-31 14:45 | NUR ---
ADMIN DILAUDID 4MG PO FOR REPORTS OF 5/10 ABDOMINAL PAIN.
--- NOTE | 2023-08-31 15:48 | NUR ---
PT STATES PAIN IS STILL AT 5/10, AND WORSENING. PT REQUESTS ADDITIONAL PAIN MEDICATION, PRN PAIN MEDICATION GIVEN (SEE EMAR). EDUCATION ON WALKING AND POSSIBLE SHOWER ONCE PAIN IS UNDER CONTROL, PT VERBALIZES UNDERSTANDING. PT STATES NO FURTHER NEEDS AT THIS TIME, CALL LIGHT WITHIN REACH, BED RAILS UP.
--- NOTE | 2023-08-31 16:30 | NUR ---
HOURLY ROUNDING. PT RESTING WITH EYES CLOSED, RR 16 EVEN AND UNLABORED. AT THE BEDSIDE, CALL LIGHT WITHIN REACH, BED RAILS UP.
--- NOTE | 2023-08-31 17:23 | NUR ---
HOURLY ROUNDING. PT STATES PAIN IS NOW 2/10, DENIES NEED FOR PAIN MEDICATION AT THIS TIME. PT VISITING WITH FAMILY IN ROOM. PT STATES NO FURTHER NEEDS AT THIS TIME, CALL LIGHT WITHIN REACH, BED RAILS UP.
[2023-08-31 17:24] VITALS: BP 147/86
--- NOTE | 2023-08-31 18:09 | NUR ---
HOURLY ROUNDING. NEW BAG OF FLUID PLACED D/T COMPLETE BAG, SEE EMAR. PT STATES PAIN IS 2/10, STATES HE WOULD LIKE PAIN MEDICATION WHEN IT IS NEXT DUE TO "STAY ON TOP OF IT". PT STATES NO FURTHER NEEDS AT THIS TIME, CALL LIGHT WITHIN REACH, BED RAILS UP.
--- NOTE | 2023-08-31 19:30 | NUR ---
REPORT RECIEVED FROM DAY SHIFT RN. PATIENT RESTING IN BED WITH AT BEDSIDE. PATIENT REPORTS NO NEEDS CURRENTLY. CALL LIGHT IN REACH.
[2023-08-31 20:04] VITALS: BP 156/89
--- NOTE | 2023-08-31 20:20 | NUR ---
PATIENT IN BED RESTING WITH AT BEDSIDE. STATES PATIENT PASSED GAS 3 TIMES UPON ENTERING THE ROOM. VS AND I&Os OBTAINED AND RECORDED. ASSESSMENT COMPLETED. PATIENT STATES THE LEFT SIDE OF ABD HAS PAIN BUT THE REST FEELS OK. ACTIVE BOWEL TONES. ABD DISTENDED BUT NONTENDER. INSICION WELL APPROXIMATED WITH BANDAR INTACT. NO REDNESS OR DRAINAGE NOTED. NO COMPLAINTS OF NAUSEA. ENCOURAGED PATIENT TO AMBULATE. PATIENT AGREEABLE. PATIENT HAS NO FURTHER NEEDS. CALL LIGHT IN REACH.
--- NOTE | 2023-08-31 22:09 | NUR ---
CALL LIGHT ANSWERED. PT REQUESTING AND RECEIVED PRN FOR PAIN. PT/ REPORTS AMBULATING X 1 LAP AROUND NURSING UNIT. NO FURTHER NEEDS. CALL LIGHT IN REACH.
--- NOTE | 2023-08-31 22:44 | NUR ---
PATIENT RESTING IN BED ON BACK WITH EYES CLOSED. RESPIRATIONS EVEN AND UNLABORED. IV FLUIDS INFUSING PER ORDER. AT BEDSIDE. CALL LIGHT IN REACH.
--- NOTE | 2023-09-01 01:23 | NUR ---
PATIENT IN BED ON BACK. PATIENT REPORTING PAIN. PRN PAIN MEDICATION ADMINISTERED PER PATIENT REQUEST. NO FURTHER NEEDS. CALL LIGHT IN REACH.
--- NOTE | 2023-09-01 02:40 | NUR ---
PATIENT RESTING IN BED ON BACK WITH EYES CLOSED. RESPIRATIONS EVEN AND UNLABORED. CALL LIGHT IN REACH.
--- NOTE | 2023-09-01 03:59 | NUR ---
CALL LIGHT ANSWERED. NEW BAG IV FLUID INFUSING PER ORDER. PRN MEDICAION ADMINSIERED FOR PAIN PER PATIENT REQUEST. ASSESSMENT COMPLETE. PATIENT HAS ACTIVE BOWEL TONES IN ALL 4 QUADRANTS. PATIENT STATES 2/10 PAIN IN ABD. NO NAUSEA AT THIS TIME. INSICION SITE INTACT WITH NO DRAINAGE. PATIENT HAS NO FURTHER NEEDS. CALL LIGHT IN REACH.
[2023-09-01 06:27] VITALS: BP 137/87
--- NOTE | 2023-09-01 06:34 | NUR ---
PATIENT RESTING IN BED. AWAKENS EASILY. PATIENT VS AND I&Os OBTAINED AND RECORDED. PATIENT REPORTS PAIN IN ABD. PRN PAIN MEDICATION ADMINISTERED PER PATIENT REQUEST. PATIENT HAS NO FURTHER NEEDS. CALL LIGHT IN REACH.
--- NOTE | 2023-09-01 07:20 | NUR ---
report obtained from am RN. pt in bed, resting, eyes closed, IVF infusing, ice chips at bedside. rooming in
--- NOTE | 2023-09-01 08:30 | NUR ---
Pt still resting, not disturbed as per wifes requests. Pt on room air. no distress, turns and repositins self in bed, laying on L side. IVf infusing. ice chips at bedside
--- NOTE | 2023-09-01 08:54 | NUR ---
PT AWAKE, SITTING UP IN BED, AWARE OF CLEAR DIET WITH FLUID RESTRICTIONS. SMALL CONTAINER OF APPLE JUICE GIVEN. WILL ASSESS TOLERANCE.
[2023-09-01 09:40] VITALS: BP 139/86
--- NOTE | 2023-09-01 09:57 | NUR ---
Cooperative with assessmnet, abd distented, firm at lower quads, slightly tender, timpanic. passing gas. Up to bathroom, showered. did all care. SL for showers. Medicated with Tylenol per c/o abd pain and h/a. irritable mood but redirectable. No n/v from sips of juice
--- NOTE | 2023-09-01 09:58 | NUR ---
UR NOTE [facility] INTESTINAL OBSTRUCTION 08/31/23 VARIANCE GL DAY 3 09/01/23 VARIANCE GL DAY 3
--- NOTE | 2023-09-01 11:13 | NUR ---
PT AMBULATING HALLWAYS WITH , TOLERATING WELL, NO C/O PAIN
--- NOTE | 2023-09-01 12:13 | NUR ---
Resting, eyes closed, no s/sx distress, on room air. IVf infusing, rooming in
[2023-09-01 14:07] VITALS: BP 136/82
--- NOTE | 2023-09-01 14:18 | NUR ---
Pt in bed, has ambulated in room. c/o increased rectal flatus. and air bubbles when up to BRP, no bm. voiding in toilet. Currently in bed c/o abd pain. midline incision with regina, edges well approx, dry. open to air. lower abd distended firm, tender. HEA. Medicated with Dilaudid 4mg po. Tolerating small sips of juices of clear liquid diet, no emesis. warm tea given on requests at this time. rooming in
--- NOTE | 2023-09-01 14:57 | NUR ---
Pt ambulating hallways with , tolerating well, no further c/o abd pain, no n/v. IVf infusing. scds off. Back to bed
--- NOTE | 2023-09-01 17:54 | NUR ---
ambulating hallways with , tolerating well. no further c/o pain or n/v. passing oral and rectal gas. ivf infusing
--- NOTE | 2023-09-01 18:06 | NUR ---
ON ROOM AIR. MIDLINE ABD INCISION WITH BANDAR IN PLACE, NORMAL SKIN COLORING, DRY, WELL APPROXIMATED. HEA, ABD DISTENDED, MORE LOWER ABD FIRM, TENDER TYMPANIC. PASSING ORAL AND RECTAL FLATUS. ON CLEAR LIQUIDS WITH FLUID RESTRICTINO. TAKING SMALL SIPS OF FLUIDS. FAMILY WILL BRING TEA FROM HOME THAT PT LIKES. HAS BEEN AMBULTING SEVERAL TIMES UP AND DOWN HALLWAYS. VOIDING QS. HAD A BATH WITH WIFES HELP. IVF INFUSING. WAS MEDICATED WITH TYLENOL AND DILAUDID X1, EFFECTIVE.
[2023-09-01 18:12] VITALS: BP 145/77
--- NOTE | 2023-09-01 18:24 | NUR ---
pt medicated with dilaudid 4mg po c/o 12/10 abd pain. in bed watching tv. has been up to br several times trying to have a bm, not successful. no bm this shift, passing gas. has voided qs in toilet. at bedside
--- NOTE | 2023-09-01 20:01 | NUR ---
Patient lying in bed, resting, states he is comfortable, watching TV, is at bedside. call light in reach, Report provided by jai BLAKELY.
[2023-09-01 22:22] VITALS: BP 132/90
--- NOTE | 2023-09-01 22:25 | NUR ---
Patient remains comfortable, resting in bed, patient is burping and passing flatus, Abd. is distented, slight taunt, denies nausea, BT's active, midline incision open to air and dry, clean and intact wtih regina, Patient got up and ambulated in the jones with , gait steady. Resting with lights off now and call light in reach.
--- NOTE | 2023-09-02 00:05 | NUR ---
Patient resting with eyes closed, appears comfortable, sleeping at bedside, RR - 18. call light within reach.
[2023-09-02 01:28] VITALS: BP 146/77
--- NOTE | 2023-09-02 01:29 | NUR ---
Patient awake, requested and given pain medication, Abd. still distended patient feels it is decreasing, no nausea, active BT's and continues to pass flatus. VSS. call light within reach.
--- NOTE | 2023-09-02 03:46 | NUR ---
Patient called and requested and was given tylenol for abdominal discomfort, had no further request, assessment without change, call light within reach.
--- NOTE | 2023-09-02 05:07 | NUR ---
Patient slept well the first part of the shift, now sleeping on and off, VS remained stable, Abdomine without change, active BT's, midline incision intact, no nausea, Given one dose IV pain medication this shift and one dose oral. Sipping on fluids, IV infusing @ 85/h. voiding QS, has slept at bedside tonight, lights remain out and call light wihtin reach.
[2023-09-02 06:01] VITALS: BP 141/80
--- NOTE | 2023-09-02 07:10 | NUR ---
REPORT RECEIVED FROM ZORA GILL. PT LAYING IN BED SEMI-FOWLERS. PT RR EVEN AND UNLABORED. PT LOOKS AT DOOR AND THEN CLOSES EYES. NO NEEDS REPORTED. SIGNIFICANT OTHER UP ON COUCH. CALL LIGHT IN REACH.
--- NOTE | 2023-09-02 09:26 | NUR ---
IN TO ADMINISTER MEDICATIONS, SEE MAR. PT SITTING UP IN BED. PT TAKES PO MEDICATIONS WITH NO ISSUES. IV FLUSHES WNL. IV FLUIDS RESUMED. ASSESSMENT COMPLETE. PT REPORTING PAIN 1/10 IN LEFT SIDE OF ABD. PRN PAIN MEDICATION ADMINISTERED, SEE MAR. BOWEL TONES ACTIVE. ABD FIRM AND TENDER ON LEFT SIDE WITH PALPATION. LUNG SOUNDS CLEAR. PT DENIES NUMBNESS OR TINGLING AT THIS TIME. 625ML VOID NOTED IN URINAL, TEA COLORED URINE NOTED. PT REPORTS PASSING GAS BOTH BY BELCHING AND FLATUS. ICE WATER PROVIDED. PT DENIES ANY OTHER NEEDS AT THIS TIME. CALL LIGHT IN REACH. SIGNIFICANT OTHER IN ROOM.
--- NOTE | 2023-09-02 10:02 | NUR ---
MS BREWSTER. UNABLE TO VISIT. NURSING STAFF IN ROOM. PROVIDED PRAYER.
[2023-09-02 10:03] VITALS: BP 138/76
--- NOTE | 2023-09-02 10:28 | NUR ---
IN TO ROUND ON PT. PT RESTING IN BED SEMI-FOWLERS. EYES CLOSED. RR EVEN AND UNLABORED. RR OF 18 NOTED. SIGNIFICANT OTHER IN RECLINER. NO NEEDS IDENTIFIED OR REPORTED AT THIS TIME. CALL LIGHT IN REACH.
--- NOTE | 2023-09-02 11:19 | NUR ---
IN THIS RN NOTIFIED BY CHERY MONROY THAT PT IS REQUESTING TO AMBULATE. PT SL AT THIS TIME. AND PT UP AND OUT OF BED AMBULATING WITH SIGNIFICANT OTHER. PT HAS STEADY GAIT. NO OTHER NEEDS FROM THIS RN AT THIS TIME.
--- NOTE | 2023-09-02 11:46 | NUR ---
IN TO ROUND ON PT. PT SITTING UP IN BED AND RESPONDS WHEN ADDRESSED. IV FLUIDS RESUMED. PT REPORTING PAIN 10/12. PT DENIES ANY OTHER NEEDS AT THIS TIME. CALL LIGHT IN REACH.
--- NOTE | 2023-09-02 12:59 | NUR ---
IN TO ROUND ON PT. PT LAYING IN BED. PT RESPONDS WHEN ADDRESSED. PT DENIES ANY OTHER NEEDS AT THIS TIME. CALL LIGHT IN REACH.
--- NOTE | 2023-09-02 13:04 | NUR ---
UR NOTE [facility]CG INTESTIONAL OBSTRUCTION (ISC) INPATIENT 09/02/23 VARIANCE GL DAY 3
--- NOTE | 2023-09-02 14:03 | NUR ---
IN TO ROUND ON PT. PT GETTING UP FROM BED AND STATES "I THINK I AM GOING TO HAVE A BM." PT DENIES ANY NEEDS AT THIS TIME. PT AMBULATES [facility] IV POLE FROM BED TO RESTROOM WITH STEADY GAIT. PT EDUCATED TO CALL IF PT NEEDS ANY ASSISTANCE. PT VERBAIZES UNDERSTANDING.
--- NOTE | 2023-09-02 14:08 | NUR ---
PT TO NURSES STATION. PT STATES "NOPE, NOTHING. JUST AIR." PT REFERRING TO POTENTIAL BM. PT AMBULATING BERMUDEZ. PT DENIES ANY OTHER NEEDS AT THIS TIME.
--- NOTE | 2023-09-02 14:35 | NUR ---
IN TO ROUND ON PT. PT SITTING UP IN BED. PT RESPONDS WHEN ADDRESSED. ASSESSMENT COMPLETE. LUNG SOUNDS CLEAR. BOWEL TONES ACTIVE. PT REPORTS SOME TENDERNESS TO LEFT LOWER QUADRANT OF ABD WITH PALPATION. ABD FIRM WITH PALPATION. MIDLINE INCISION OPEN TO AIR, DRY. NO REDNESS NOTED TO OR AROUND INCISION SITE, NOT WARM TO TOUCH. PT DENIES PAIN AT THIS TIME. URINAL EMPTIED. VITALS AND I&Os COMPLETE. PT DENIES ANY OTHER NEEDS AT THIS TIME. CALL LIGHT IN REACH.
[2023-09-02 14:38] VITALS: BP 130/83
--- NOTE | 2023-09-02 15:16 | NUR ---
IN TO ROUND ON PT. PT SITTING UP IN BED REQUESTING TO BE UNHOOKED FROM FLUIDS TO AMBULATE BERMUDEZ. PT SL SO PT CAN AMBULATE. [facility]ICKEN BROTH PROVIDED. PER PT REQUEST. PT DENIES ANY OTHER NEEDS AT THIS TIME.
--- NOTE | 2023-09-02 16:02 | NUR ---
IN TO ROUND ON PT. PT HOOKED BACK UP TO FLUIDS. IV INFUSING WNL. PT DENIES ANY OTHER NEEDS AT THIS TIME. CALL LIGHT IN REACH.
--- NOTE | 2023-09-02 16:39 | NUR ---
PT AMBULATING BERMUDEZ WITH STEADY GAIT.
--- NOTE | 2023-09-02 17:13 | NUR ---
IN TO ROUND ON PT. PT SITTING UP IN BED WATCHING TV. PT RESPONDS WHEN ADDRESSED. PT DENIES ANY OTHER NEEDS AT THIS TIME. CALL LIGHT IN REACH.
[2023-09-02 18:08] VITALS: BP 144/87
--- NOTE | 2023-09-02 18:48 | NUR ---
PT AMBULATING BERMUDEZ.
--- NOTE | 2023-09-02 18:56 | NUR ---
IN TO ANSWER CALL LIGHT. PT HOOKED BACK UP TO IV FLUIDS. URINAL EMPTIED. IV INFUSING WNL. PT DENIES ANY OTHER NEEDS AT THIS TIME. CALL LIGHT IN REACH. FAMILY IN ROOM.
[2023-09-02 20:55] VITALS: BP 142/81
--- NOTE | 2023-09-03 00:11 | NUR ---
PT RESTING COMFORTABLY IN BED WITH EYES CLOSED. BREATHING EVEN AND UNLABORED. AT BEDSIDE. IV FLUIDS INFUSING. CALL LIGHT WITHIN REACH. SAFETY PRECAUTIONS IN PLACE. NO NEEDS EXPRESSED AT THIS TIME.
--- NOTE | 2023-09-03 03:01 | NUR ---
PT RESTING COMFORTABLY WITH EYES CLOSED. BREATHING EVEN ND UNLABORED. MIDLINE INCISION C,D,I. NO COMPLAINTS OF PAIN. CALL LIGHT WITHIN REACH. SAFETY PRECAUTIONS IN PLACE. IV FLUIDS INFUSING. AT BEDSIDE.
[2023-09-03 04:56] VITALS: BP 129/64
--- NOTE | 2023-09-03 07:05 | NUR ---
REPORT RECEIVED FROM LAB REP RN. PATIENT RESTING WITH EYES CLOSED AND SNORING. PATIENT IS AT THE BEDSIDE AND WOKE UP UPON OPENING THE PATIENTS DOOR. CALL LIGHT IS WITHIN REACH.
--- NOTE | 2023-09-03 09:11 | NUR ---
PATIENT FULL ASSESSMENT COMPLETE AND DOCUMENTED IN THE PATIENTS CHART. PATIENT REFUSED MORNING MEDICATION PER THE EMAR AND IS EAGER TO GO HOME. PATIENT FULL ASSESSMENT UNREMARKABLE. PATIENT MIDLINE INCISION IS CLEAN, DRY, AND INTACT. PATIENT HAS NO REDNESS OR WARMTH SURROUNDING THE PATIENTS MIDLINE INCISION. PATIENT DISCONNECTED FROM THE IV PUMP AND IS WALKING IN THE HALLS NOW. PATIENT WILL GET A SOFT DIET NOW AND AT LUNCH AND ASSESS HOW IT IS TOLERATED. PATIENT STATED NO FURTHER NEEDS AT THIS TIME. CALL LIGHT AND PERSONAL BELONGINGS ARE WITHIN [facility].
--- NOTE | 2023-09-05 06:45 | DS ---
[facility] [address], [place] [address] Signed ADMISSION DATE: 08/27/2023 DISCHARGE DATE: 09/03/2023 FINAL DIAGNOSIS: Small bowel obstruction from interloop adhesions. PROCEDURE: Laparotomy with lysis of adhesions. HISTORY: Praveen is a 57-year-old gentleman, who is originally from [place], [place]. 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 It looks like he has had an open appendectomy when he was a child. At some point in his life, he had a Meckel diverticulectomy as well. He is also describing what sounds like colonic diverticulosis, perforated requiring surgery as well. He has a fairly sizable transverse supraumbilical incision in that regard. He also had a little ventral hernia off to the side about 3 cm in diameter. He had come to our emergency room with left lower quadrant abdominal pain and abdominal distention. His vital signs were fine, but he clearly had tenderness in the left lower quadrant and the incarcerated ventral hernia. White count was little elevated. CT scan showed the hernia plus some swirling of small bowel and the small bowel obstruction. I had been called to see him as a general surgeon on-call. HOSPITAL COURSE: I met with Praveen and his late in the evening in the ER. An NG tube went down with return of somewhat murky bilious gastric fluid. He was given IV fluids, antibiotics, and admitted him to the hospital. We took him to surgery the next day and he had a laparotomy with lysis of adhesions. I could see that he has in fact had Meckel diverticulectomy in the past. Really, he had mostly interloop adhesions for the small bowel and some adhesions up to his transverse incision above the umbilicus. We also took down the ventral hernia. We did run the bowel from the ligament of Treitz all the way back to the terminal ileum. At that point, he had a proximal jejunum that was dilated 3 cm and fluid-filled, little hyperemic, but his distal bowel was completely decompressed. He had an uneventful postoperative course. He slowly, but surely regained his bowel function. Today, his abdomen is flat, soft, nontender, all the tympany is gone. He is tolerating his clear liquid diet. He has been walking up and down the hallways and is quite anxious to go home. I think at this point we are going to work towards that direction. DISCHARGE PLANS AND MEDICATIONS: Praveen has not taken any narcotics in over 24 hours. He did not take any Tylenol in over Electronically Signed By: RIA HAMILTON MD 09/05/23 0645 PATIENT NAME: PRAVEEN NUÑEZ DISCHARGE SUMMARY DATE OF : 61 REPORT #: [id number] PHYSICIAN: RIA HAMILTON MD PCP: NO PRIMARY CARE PHYSICIAN REPORT IS CONFIDENTIAL AND NOT TO BE RELEASED WITHOUT AUTHORIZATION [address] [address] Signed 24 hours. He said he will not accept any narcotics at discharge. If he needs anything, he will use some Tylenol [id number]. He is welcome to continue his activities of daily living including walking up and down stairs, showering and bathing as usual. We have asked him not to do any heavy pushing, pulling, or lifting over 20 pounds. We have left all the regina in place. We are going to give him a soft diet and if he tolerates that he will be going home here in a few hours. We will advance his diet from soft to regular at home. 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 I have asked him not to go back to work currently. We will see him in the office in about a week and reassess and remove the regina. It is not uncommon after laparotomy people take eight weeks off work. He has already been talking with his boss in that regard. He told me there is really not any light duty status at his work. He and his have expressed understanding and agreed with the above plan. Ria Hamilton MD [facility] /[id number] cc: Ria Hamilton MD Copies: RIA HAMILTON MD ~ Electronically Signed By: RIA HAMILTON MD 09/05/23 0645 PATIENT NAME: PRAVEEN NUÑEZ DISCHARGE SUMMARY DATE OF : 61 REPORT #: [id number] PHYSICIAN: RIA HAMILTON MD PCP: NO PRIMARY CARE PHYSICIAN REPORT IS CONFIDENTIAL AND NOT TO BE RELEASED WITHOUT AUTHORIZATION
== END 2023-09-03 11:50 | disposition home or self-care (01) | DRG 336 ==
LOC: ED 13:43 → MS 18:33
PROVIDERS: ADMIT Colon & Rectal Surgery; ATTEND Colon & Rectal Surgery
PROC: 0DNU0ZZ Release Omentum, Open Approach (ICD-10-PCS; 2023-08-28)
PROC: 0DNN0ZZ Release Sigmoid Colon, Open Approach (ICD-10-PCS; 2023-08-28)
PROC: 0DN80ZZ Release Small Intestine, Open Approach (ICD-10-PCS; principal; 2023-08-28 09:00)
PROC: 0DNL0ZZ Release Transverse Colon, Open Approach (ICD-10-PCS; 2023-08-28 09:00)
DX: K56.51 Intestinal adhesions [bands], with partial obstruction (principal); K43.6 Other and unspecified ventral hernia with obstruction, without gangrene; F17.200 Nicotine dependence, unspecified, uncomplicated; E83.42 Hypomagnesemia; Z88.5 Allergy status to narcotic agent; Z88.8 Allergy status to other drugs, medicaments and biological substances; Z90.49 Acquired absence of other specified parts of digestive tract
CPT/HCPCS: 00840; 36415; 71045; 74177; 76942; 80048; 80053; 81003; 83690; 83735; 84100; 85025; 93005; 93010; 94760; 94762; 96375; 96376; 99285-25; A9270; C9113; J0131; J0696; J1100; J1170; J1650; J1885; J2001; J2405; J2704; J2795; J3475; J3490; J7121; Q9967